=== PATIENT | male | born 1950 | race Caucasian/White ===

== ENCOUNTER 2016-11-06 07:16 | Day surgery (SDC) | payer MEDICARE, BC ==
[2016-11-06] MEDS ORDERED: LIDOCAINE 2% MDV (20MG/ML) 20ML VIAL IV ONE (14:00)
[2016-11-06] MEDS ORDERED: PROPOFOL 10 MG/ML VIAL IV ONE (14:00)
[2016-11-06] MEDS ORDERED: MIDAZOLAM HCL 2MG/2ML VIAL IV ONE (14:00)
--- NOTE | 2016-11-11 17:31 | Operative Note ---
DATE OF SURGERY: 11/06/2016 OPERATION: COLONOSCOPY with cold snare polypectomy. PREOPERATIVE DIAGNOSIS: Screening, average risk. POSTOPERATIVE DIAGNOSES: 1. Sigmoid diverticulosis. 2. Rectal polyp. ESTIMATED BLOOD LOSS: Minimal. SPECIMENS: Rectal polyp. PREPARATION QUALITY: Excellent. COMPLICATIONS: None apparent. PROCEDURE: After informed consent was obtained from the patient, he was placed in the left lateral decubitus position in the endoscopy suite, sedated and monitored by the department of anesthesia. Digital rectal examination revealed no palpable mass. A well-lubricated FHT724 colonoscope was inserted into the rectum and advanced to the cecum. The ileocecal valve, appendiceal orifice, cecum, ascending colon, transverse colon, and descending colon were free of inflammatory changes, mass lesions, or polyps. There were [id number] sigmoid diverticular changes noted. No inflammation was seen. The rectum revealed a 4-5 mm sessile polyp removed with a cold snare. Minimal bleeding was noted. The polyp was retrieved. J-turn views of the anorectum were unrevealing. The endoscope was straightened, the rectal ampulla deflated, and the endoscope was removed. RECOMMENDATIONS: The patient should resume his medications and diet. He should follow a high-fiber diet. He will require repeat exam most likely in 5 years with the final determination based on tissue histology. As always, thank you for allowing me to participate in the healthcare of your patients. CC: Dr. Milton ESTRADA
== END 2016-11-06 09:18 | disposition home or self-care (01) ==
LOC: HOP 07:16
PROVIDERS: ATTEND Internal Medicine Gastroenterology
DX: Z12.11 Encounter for screening for malignant neoplasm of colon (principal); K62.1 Rectal polyp; K57.30 Diverticulosis of large intestine without perforation or abscess without bleeding; I10 Essential (primary) hypertension; E78.00 Pure hypercholesterolemia, unspecified